=== PATIENT | male | born 1980 | race Caucasian/White ===

== ENCOUNTER 2021-10-06 21:52 | Emergency (ER) | payer OTHER ==
[~2021-10-06] VITALS: Ht 172.7 cm; Wt 90.0 kg
[~2021-10-06 21:52] MED LIST: CITALOPRAM HBR20 MG PO; CORTISPORIN EAR10 M1 AS; PROTONIX40 MG PO
--- NOTE | 2021-10-07 14:09 | EKG ---
[facility] [address] [place], [place] [address] Signed Normal sinus rhythm Septal infarct , age undetermined Abnormal ECG No previous ECGs available Confirmed by NIKKO MARVIN MD ([id number]) on 10/07/2021 2:09:25 PM Electronically Signed By: NIKKO MARVIN MD 10/07/21 1409 PATIENT NAME: ALEKSANDRA BYERS Electrocardiogram DATE OF : 82 PHYSICIAN: NIKKO MARVIN MD REPORT #: [id number] REPORT IS CONFIDENTIAL AND NOT TO BE RELEASED WITHOUT AUTHORIZATION
== END 2021-10-06 22:50 | disposition home or self-care (01) ==
LOC: ED 21:52
DX: R07.89 Other chest pain (principal); F17.200 Nicotine dependence, unspecified, uncomplicated
CPT/HCPCS: 36415; 71045; 80053; 83735; 84484; 85025; 93005; 93010; 99285-25